=== PATIENT | male | born 1995 | race Caucasian/White ===

== ENCOUNTER 2017-11-08 17:35 | Emergency (ER) | payer MEDICAID ==
[~2017-11-08] VITALS: Ht 182.9 cm; Wt 66.2 kg
[2017-11-08 17:43] VITALS: Ht 182.9 cm; Wt 66.2 kg
[2017-11-08 19:50] VITALS: BP 121/58
== END 2017-11-08 19:50 | disposition home or self-care (01) ==
LOC: ED 17:35
DX: J02.9 Acute pharyngitis, unspecified (principal)
CPT/HCPCS: J0696; J1100